=== PATIENT | male | born 1950 | race Caucasian/White ===

== ENCOUNTER → 2018-11-13 | Outpatient (CLI) | payer MEDICARE, OTHER ==
[~2018-11-13] MED LIST: AUGMENTIN 875 M1 TAB PO; CLINDAMYCIN HC300 MG PO; CLINORIL 1150 MG/TAB PO; COUMADIN 5MG5 MG/TAB PO; TOPROL XL25 MG PO
== END ==
LOC: ZCOL.LAB 17:11
DX: Z01.812 Encounter for preprocedural laboratory examination (principal); Z86.14 Personal history of Methicillin resistant Staphylococcus aureus infection

== ENCOUNTER 2020-05-19 15:29 | Day surgery (SDC) | payer MEDICARE, OTHER ==
[2020-05-19] VITALS (8 sets, daily range): BP systolic 120–138; BP diastolic 68–82; PULSE 60–77; TEMP 97.4–97.7
[~2020-05-19] VITALS: Ht 185.4 cm; Wt 103.7 kg
[2020-05-19] MEDS ORDERED: LIPITOR 40MG TA40 MG PO (15:51)
[2020-05-19] MEDS ORDERED: XARELTO10 MG PO (15:51)
[2020-05-19] MEDS ORDERED: ASPIRIN E.C. 8181 MG PO (15:52)
--- NOTE | 2020-05-19 19:15 | NUR ---
Pt arrived to the floor via stretcher. Pt is alert and oriented. Pt is at bedside. Pt stated that he has no pain at this time. Pt vitals are within normal limits. Pt lungs sounds are clear and heart sounds are normal S1 and S2 sounds. Pt has voided and urine is red tinged but clear. Pt is currently drinking ice water and attempting to try some jello. Pt has his call light within reach.
--- NOTE | 2020-05-19 20:45 | NUR ---
Pt has no complaints of pain at this time. Pt was able to tolerate jello and a sandwich tray with no nausea. Pt has been able to drink water without any complaints. Pt has been voiding. Pt urine is red tinged and is clear. Pt is still at pt bedside. pt vitals are all within normal limits. Pt IV was discontinued at this time. Pt stated that he would get dressed and call out when he was done.
--- NOTE | 2020-05-19 20:55 | NUR ---
Pt education was given to pt at this time. All pt instructions were given at this time. Pt stated that he understood all of his education that was given. Pt was also given education at this time and he was sent home with a prescription of Pyridium and a copy was made and placed on pt chart. Pt has no other concerns at this time. Pt is currently going down to get the vehicle and I told her that I would escort pt out with a wheelchair.
--- NOTE | 2020-05-19 21:23 | NUR ---
Pt was escorted out to his car via wheelchair. Pt stated that he still wasn't having any pain. Pt was able to ambulate from the wheelchair to the car withour any complaints.
== END 2020-05-19 21:20 | disposition home or self-care (01) ==
LOC: SDCO 15:29 → SURG 19:00 → SDCO 21:20
DX: N20.1 Calculus of ureter (principal); Z85.72 Personal history of non-Hodgkin lymphomas; Z86.718 Personal history of other venous thrombosis and embolism; J30.2 Other seasonal allergic rhinitis; J38.3 Other diseases of vocal cords; Z96.611 Presence of right artificial shoulder joint; Z88.1 Allergy status to other antibiotic agents; Z79.01 Long term (current) use of anticoagulants; Z96.651 Presence of right artificial knee joint; Z86.73 Personal history of transient ischemic attack (TIA), and cerebral infarction without residual deficits
CPT/HCPCS: OP; C1769; J0690; J1100; J1940; J2405; J2704; J3010; J7120; Q9967

== ENCOUNTER 2020-11-10 07:24 | Outpatient (CLI) | payer MEDICARE, OTHER ==
[~2020-11-10] VITALS: Ht 185.5 cm; Wt 104.0 kg
[~2020-11-10 07:24] MED LIST changes: +ASPIRIN E.C. 8181 MG PO; +LIPITOR 40MG TA40 MG PO; +XARELTO10 MG PO
[2020-11-10 08:05] VITALS: BP 145/81; PULSE 54; TEMP 98.6
[2020-11-10 08:10] LABS: HEMOGLOBIN 13.2 g/dl (13.5-18.0); MEAN CELL VOLUME 91 fl (80.0-100.0); MEAN CORPUSCULAR HEMOGLOBIN 32 pg (27.0-31.0); MEAN CORPUSCULAR HGB CONC 36 g/dl (33.0-37.0); MEAN PLATELET VOLUME 10.8 fl (7.4-10.4); PLATELET COUNT 117 K/mm3 (130-400); RED BLOOD COUNT 4.07 M/mm3 (4.20-5.60); REDCELL DISTRIBUTION WIDTH-CV 13.1 % (11.5-14.5)
[2020-11-10 08:11] LABS: HEMATOCRIT 36.9 % (42.0-52.0)
[2020-11-10 08:15] LABS: INR 1.8 (0.8-3.0); PROTHROMBIN TIME 20.6 SECONDS (9.7-12.8)
[2020-11-10 08:18] LABS: ALBUMIN 3.8 gm/dL (3.5-5.0); BILIRUBIN,TOTAL 0.8 mg/dL (0.0-1.0); CALCIUM 8.7 mg/dL (8.4-10.2); CREATININE, serum 1.05 (0.66-1.25); MAGNESIUM 2.1 mg/dL (1.6-2.3); POTASSIUM 3.9 mmol/L (3.4-5.0); TOTAL PROTEIN 6.5 gm/dL (6.4-8.2)
[2020-11-10 09:30] VITALS: BP 125/74; PULSE 55
--- NOTE | 2020-11-10 09:30 | NUR ---
REPORT FROM RAYSHAWN ACKERMAN, PT SITS UP IN BED, AWAKE AND ALERT. NOW IN ROOM, CALL LIGHT IN REACH, CONTACTED DR BAIRES TO COME DIRECTED TO TALK WITH PT.
[2020-11-10 09:45] VITALS: BP 121/76; PULSE 50
[2020-11-10 10:00] VITALS: BP 121/73; PULSE 51
--- NOTE | 2020-11-10 10:00 | NUR ---
DR BAIRES INTO SEE PT.
[2020-11-10 10:15] VITALS: BP 135/78; PULSE 55
--- NOTE | 2020-11-10 10:15 | NUR ---
DISCHARGE INST. GIVEN TO PT ON MODERATE SEDATION, AND ACTIVITY WITH VERBAL UNDERSTANDING. IV D'CD INTACT WITH PRESSURE. UP IN ROOM DRESSED, DISCHARGED AT 1030 VIA W/C WITH AND STAFF TO CAR
== END 2020-11-10 10:30 | disposition home or self-care (01) ==
LOC: COL.RAD 07:24
PROVIDERS: Internal Medicine Adult Congenital Heart Disease
DX: I63.9 Cerebral infarction, unspecified (principal); Z20.822 Contact with and (suspected) exposure to COVID-19; Z88.1 Allergy status to other antibiotic agents; Z79.82 Long term (current) use of aspirin; Z79.01 Long term (current) use of anticoagulants; Z79.899 Other long term (current) drug therapy
CPT/HCPCS: J2704

== ENCOUNTER → 2024-05-01 | Outpatient (CLI) | payer MEDICARE, OTHER ==
[2024-05-01] VITALS (9 sets, daily range): BP systolic 115–150; BP diastolic 67–84; PULSE 61–67; TEMP 98.7
[~2024-05-01] VITALS: Ht 185.4 cm; Wt 105.0 kg
[~2024-05-01] MED LIST changes: +Midazolam 2 MG/2 ML VIAL IV SCH; +fentaNYL 50 MCG/ML 2 ML VIAL IV SCH
[2024-05-01 07:39] LABS: HEMOGLOBIN 11.8 g/dl (13.5-18.0); MEAN CELL VOLUME 98 fl (80.0-100.0); MEAN CORPUSCULAR HEMOGLOBIN 34 pg (27-31); MEAN CORPUSCULAR HGB CONC 35 g/dl (33.0-37.0); MEAN PLATELET VOLUME 11.6 fl (7.4-10.4); PLATELET COUNT 81 K/mm3 (130-400); RED BLOOD COUNT 3.43 M/mm3 (4.20-5.60); REDCELL DISTRIBUTION WIDTH-CV 14.9 % (11.5-14.5)
[2024-05-01 07:58] LABS: HEMATOCRIT 33.7 % (42.0-52.0)
[2024-05-01 08:08] LABS: EOSINOPHIL 1 % (0-4); LYMPHOCYTE 33 % (20.0-51.0); NEUTROPHILS 57 % (42.0-75.2); PLATELET ESTIMATE DECREASED (NORMAL)
--- NOTE | 2024-05-01 08:43 | NUR ---
SPECIMENS COLLECTED AT 0819. LAB PRESENT TO RECEIVE.
--- NOTE | 2024-05-01 09:26 | NUR ---
PATIENT HAS COMPLETED HIS RECOVERY TIME WITHOUT ANY ISSUES. IV REMOVED WITHOUT ISSUE. PATIENT GOT DRESSED BY HIMSELF. ESCORTED PATIENT VIA WHEELCHAIR WITH ALL OF HIS BELONGINGS AND PAPERWORK OUT TO HIS RIDE. PATIENT HAD NO ISSUES GETTING IN THE FRONT PASSENGER SEAT BY HIMSELF. PATIENT CONTINUES TO DENY ANY PAIN AND THE BANDAGE REMAINS CLEAN, DRY, AND INTACT. ALL NEEDS MET.
== END ==
LOC: COL.RAD 06:30
PROVIDERS: Nurse Practitioner
DX: I26.99 Other pulmonary embolism without acute cor pulmonale (principal); D61.818 Other pancytopenia
CPT/HCPCS: C1830; J2250; J3010